=== PATIENT | female | born 1975 | race Caucasian/White ===

== ENCOUNTER 2021-10-06 15:05 | Emergency (ER) | payer BC, OTHER ==
[2021-10-06 15:19] VITALS: BP 122/68; TEMP 98; BMI 26.4
[2021-10-06 15:31] VITALS: PULSE 72
== END 2021-10-06 15:55 | disposition home or self-care (01) ==
LOC: FER 15:05
DX: B34.9 Viral infection, unspecified (principal)
CPT/HCPCS: 87804; 99283-25; C9803; U0003; U0005